=== PATIENT | female | born 1990 | race Hispanic/Latino ===

== ENCOUNTER 2022-10-14 19:27 | Emergency (ER) | payer SELFPAY ==
--- OUTSIDE RECORDS SUMMARY | 2022-10-14 19:31 | XMS REPORT | Continuity of Care Document ---
:1990 Author Organization [facility] t Address [address] [place] [address] 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 Social History Social Habit Start Date Stop Date Quantity Comments Source alcohol use, 2022-07-01 2022-07-01 holidays/special [facility] frequency 08:52:38 08:52:38 occasions only Health social history E&M 2022-07-01 2022-07-01 . Not [facility] 08:52:38 08:52:38 homeless. Born Health in [place]. Employed full-time. Network Engineer. Highest education level: some college. Sex at : Male. Sexual orientation: Mejia. Gender identity: Female. Gender of partner(s): Men. Age of first sexual intercourse: 22. Sexually Active: No. social history 2022-07-01 2022-07-01 reviewed today [facility] reviewed E&M 08:52:38 08:52:38 Health is there any chance 2022-07-01 2022-07-01 No [facility] that you could be 08:52:38 08:52:38 Health ? Patient was counseled 2022-07-01 2022-07-01 Counseled for [facility] for sexual safety 08:52:38 08:52:38 sexual health Heal th safety. alcohol use 2022-07-01 2022-07-01 Currently [facility] 08:52:38 08:52:38 Health passive cigarette 2022-07-01 2022-07-01 Yes [facility] smoke exposure 08:52:38 08:52:38 Health if the patient is 2022-07-01 2022-07-01 No [facility] using/has used a 08:52:38 08:52:38 Health vaping item, Current, Former, Never Used, Not asked PHQ2 Questionairre 2022-07-01 2022-07-01 [facility] Score 08:52:38 08:52:38 Health drug use 2022-07-01 2022-07-01 Never [facility] ty 08:52:38 08:52:38 Health tobacco use 2022-04-01 2022-04-01 Currently [facility] (cigarettes, cigar, 11:19:15 11:19:15 Healt h chew, pipe) sexual orientation 2022-04-01 2022-04-01 Mejia [facility] 11:19:15 11:19:15 Health albumin, serum 2022-03-10 2022-03-10 4.9 g/dL [facility] 16:51:00 16:51:00 Health patient considered to 2022-03-10 2022-03-10 No [facility] be homeless 09:47:58 09:47:58 Health sex at 2022-03-10 2022-03-10 F Marek hollins 09:47:58 09:47:58 Health 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 Clinician (SIG) Name Name (SPIRONOLAC 2021-11 Yes Nunu TAKE ONE [facility] TONE) 100 0-14 Daniel MSN, TABLET BY Adult MG TABS 00:00: PET CARE ASSOCIATE MOUTH TWO Medic in 00 TIMES A e DAY (ESTRADIOL Yes Nunu .5 Inject 0.5 [facility] VALERATE) 5-18 Daniel MSN, ml Adul t 40 MG/ML 00:00: PET CARE ASSOCIATE intramuscu Med icin OIL 00 larly e every two weeks (ESTRADIOL) 2021- No Nunu 2 Take 2 L MC 2 MG TABS 03-13 07-11 Daniel tablet by Nolan lt 00:00: 00:00 mouth Medicin 00 :00 twice a e day 1 mL leur Yes Nunu 1 Use 1 [facility] lock 4-27 Sanchez MSN, syringe Adult syringes 00:00: PET CARE ASSOCIATE intramuscu Med icin 00 larly e every two weeks Use to draw up and inject estradiol every 2 weeks 22 gauge Yes Nunu 1 Use 1 [facility] needles 4-27 Sanchez MSN, needle as A dult 00:00: PET CARE ASSOCIATE directed Medicin 00 every two e weeks use to draw up estradiol into syringe 22 gauge x Yes Nunu 1 Use 1 [facility] 3/4 inch 4-27 Daniel MSN, needle Nolan lt needles 00:00: PET CARE ASSOCIATE intramuscu Medi danial 00 larly once e every two weeks use to inject estradiol into tissues VITAMIN D Yes Nunu 1 Take 1 [facility] (ERGOCALCIF 4-27 Daniel MSN, capsule by Adult GABRIELA) 00:00: PET CARE ASSOCIATE mouth once Medici n (ERGOCALCIF 00 a week e GABRIELA) 1.25 MG (02825 UT) CAPS (ESTRADIOL Nunu 1 Inject 1 [facility] VALERATE) 03-11 0518 Daniel ml Adult 20 MG/ML 00:00: 00:00 intramuscu Me dicin OIL 00 :00 larly e every two weeks (SPIRONOLAC Nunu 1 Take 1 L [facility] TONE) 100 03-1014 Daniel tablet by Nolan lt MG TABS 00:00: 00:00 mouth Medicin 00 :00 twice a e day Vital Signs Vital Name Observation Time Observation Value Comments Source temperature site 2022-03-10 09:47:58 oral Lega [facility] oxygen saturation, 2022-03-10 09:47:58 97 /min [facility] oximetry [facility] blood pressure, 2022-03-10 09:47:58 77 mm[Hg] [facility] diastolic [facility] blood pressure, 2022-03-10 09:47:58 127 mm[Hg] [facility] systolic [facility] pulse rate 2022-03-10 09:47:58 70 /min [facility] temperature E&M 2022-03-10 09:47:58 99.2 [degF] [facility] weight E&M 2022-03-10 09:47:58 189.50 [lb_av] [facility] weight in kilograms 2022-03-10 09:47:58 86.14 kg L [facility] 2022-03-10 09:47:58 oral Lega cy [facility] Procedures Procedure Date / Time Performing Clinician Source Performed Health 2022-03-13 11:50:44 Provider, Jae Gard[place] [facility] Health Counseling Gender Care Navigation 2022-03-10 16:19:13 Nunu Sanchez [facility] Venipuncture 2022-03-10 16:18:49 Nunu Sanchezu nit Health Encounters Start End Encounter Admission Attending Care Care Encounter Source Date/Time Date/Time Type Type Clinicians Facility Department ID 2022-07-01 2022-07-02 Office Nunu Sanchez [facility] Enco unter/ [facility] 00:00:00 00:00:00 Visit Ingrid Mojgan [id number] Commun [id number] [facility] 2022-07-01 2022-07-02 In-person Bryan Sanchezon [facility] Adult [id number] [facility] 00:00:00 00:00:00 encounter Mojgan Quintero [facility] [place] [id number] [facility] 2022-04-01 2022-04-02 Office DanielBryanon [facility] Enco unter/ [facility] 00:00:00 00:00:00 [place] [id number] [facility] [id number] [facility] 2022-04-01 2022-04-02 In-person DanielBryanon [facility] Adult [id number] [facility] 00:00:00 00:00:00 encounter [facility] 2 [address]18 [facility] 2022-03-10 2022-03-11 In-person SanchezBryanon [facility] Adult [id number] [facility] 00:00:00 00:00:00 encounter Nancy, [facility] [address] [facility] [facility] Results Test Description Test Time Test Comments Results Result Comments Source estradiol, serum 2022-03-10 16:51:00 Test Item Value Reference Range Interpretation Comme nts estradiol, serum (test code = 286) 11.0 pg/mL [facility] 25-hydroxy, [id number] 16:51:00 Test Item Value Reference Range Interpretation Comments vitamin D 25-hydroxy, serum (test 15.5 ng/mL 30.0-100.0 L code = 02924-2) [facility], [id number] 16:51:00 Test Item Value Reference Range Interpretation Comments estradiol, serum (test code = 286) 11.0 pg/mL [facility], [id number] 16:51:00 Test Item Value Reference Range Interpretation Comments prolactin, serum (test code = 13.2 ng/mL 4.8-23.3 2842-3) [facility], [id number] 16:51:00 Test Item Value Reference Range Interpretation Comments testosterone, total (test code = 284 ng/dL 13-71 H 2986-8) [facility] A1C, blood, as % of total [id number] 16:51:00 Test Item Value Reference Range Interpretation Comments hemoglobin A1C, blood, as % of total 5.1 % 4.8-5.6 hemoglobin (test code = 4548-4) [facility] cholesterol, [id number] 16:51:00 Test Item Value Reference Range Interpretation Comments LDL cholesterol, serum (test code = 74 mg/dL 0-99 2088-1) [facility] low density [id number] 16:51:00 Test Item Value Reference Range Interpretation Comments very low density lipoproteins (test 63 mg/dL 5-40 H code = 2090-7) [facility], [id number] 16:51:00 Test Item Value Reference Range Interpretation Comments HDL cholesterol, serum (test code = 33 mg/dL >39 L 9) [facility], serum, [id number] 16:51:00 Test Item Value Reference Range Interpretation Comments triglyceride, serum, fasting (test 400 mg/dL 0-149 H code = 2571-8) [facility]olesterol, [id number] 16:51:00 Test Item Value Reference Range Interpretation Comments cholesterol, serum (test code = 170 mg/dL 978-692 4460-3) [facility] aminotransferase (SGPT), [id number] 16:51:00 Test Item Value Reference Range Interpretation Comments alanine aminotransferase (SGPT), serum 44 1/L 0-32 H (test code = 1742-6) [facility]aspartate aminotransferase (SGOT), [id number] 16:51:00 Test Item Value Reference Range Interpretation Comments aspartate aminotransferase (SGOT), 26 1/L 0-40 serum (test code = 1920-8) [facility] Hospitalalkaline phosphatase, [id number] 16:51:00 Test Item Value Reference Range Interpretation Comments alkaline phosphatase, serum (test code 94 1/L 44-121 = 1783-0) [facility], serum, [id number] 16:51:00 Test Item Value Reference Range Interpretation Comments bilirubin, serum, total (test code 0.3 mg/dL 0.0-1.2 = 1975-2) [facility] Healthalbumin/globulin ratio, [id number] 16:51:00 Test Item Value Reference Range Interpretation Comments albumin/globulin ratio, 1.9 (unknown unit) 1.2-2.2 serum (test code = 1759-0) [facility] Healthglobulin, [id number] 16:51:00 Test Item Value Reference Range Interpretation Comments globulin, serum (test code 2.6 (unknown unit) 1.5-4.5 = 2336-6) [facility] Healthalbumin, [id number] 16:51:00 Test Item Value Reference Range Interpretation Comments albumin, serum (test code = 1751-7) 4.9 g/dL 3.9-5.0 [facility], total, [id number] 16:51:00 Test Item Value Reference Range Interpretation Comments protein, total, serum (test code = 7.5 g/dL 6.0-8.5 2885-2) [facility] Healthcalcium, [id number] 16:51:00 Test Item Value Reference Range Interpretation Comments calcium, serum (test code = 1999-8) 9.3 mg/dL 8.7-10.2 [facility], venous [id number] 16:51:00 Test Item Value Reference Range Interpretation Comments carbon dioxide, venous blood (test 19 mmol/L 20-29 L code = 2026-1) [facility] Healthchloride, [id number] 16:51:00 Test Item Value Reference Range Interpretation Comments chloride, serum (test code = 103 mmol/L 96-106 5-0) [facility] Healthpotassium, [id number] 16:51:00 Test Item Value Reference Range Interpretation Comments potassium, serum (test code = 4.0 mmol/L 3.5-5.2 2823-3) [facility]alsodium, [id number] 16:51:00 Test Item Value Reference Range Interpretation Comments sodium, serum (test code = 2951-2) 139 mmol/L 134-144 [facility]a nitrogen/creatinine ratio, [id number] 16:51:00 Test Item Value Reference Range Interpretation Comments urea nitrogen/creatinine 15 (unknown unit) 9- ratio, serum (test code = 3097-3) [facility] HospitalEstimated Glomerular Filtration Rate (calc)2022-03-10 16:51:00 Test Item Value Reference Range Interpretation Comments Estimated Glomerular 95 mL/min/{1.73 m2} >59 Filtration Rate (calc) (test code = 81007-1) [facility]inine, [id number] 16:51:00 Test Item Value Reference Range Interpretation Comments creatinine, serum (test code = 0.85 mg/dL 0.57-1.00 2160-0) [facility] nitrogen, [id number] 16:51:00 Test Item Value Reference Range Interpretation Comments urea nitrogen, blood (test code = 13 mg/dL 6-20 3094-0) [facility] glucose, [id number] 16:51:00 Test Item Value Reference Range Interpretation Comments blood glucose, random (test code = 86 mg/dL 65-99 2339-0) [facility] Hospitalimmature granulocytes, percentage of total cells, blood 2022-03-10 16:51:00 Test Item Value Reference Range Interpretation Comments immature granulocytes, percentage of 1 % total cells, blood (test code = 32560-9) [facility] Hospitalbasophil count, [id number] 16:51:00 Test Item Value Reference Range Interpretation Comments basophil count, absolute (test 0.1 x10E3/uL 0.0-0.2 code = 68921-6) [facility] HospitalEosinophil Absolute [id number] 16:51:00 Test Item Value Reference Range Interpretation Comments Eosinophil Absolute Count (test 0.2 X10E3/UL 0.0-0.4 code = 50834-5) [facility] Hospitalmonocyte count, blood, [id number] 16:51:00 Test Item Value Reference Range Interpretation Comments monocyte count, blood, automated 0.6 X10E3/UL 0.1-0.9 (test code = 742-7) [facility]allymph[facility] count, blood, [id number] 16:51:00 Test Item Value Reference Range Interpretation Comments lymphocyte count, blood, 2.5 X10E3/UL 0.7-3.1 automated (test code = 731-0) [facility] HospitalAbsolute [id number] 16:51:00 Test Item Value Reference Range Interpretation Comments Absolute Neutrophils (test code 4.7 X10E3/UL 1.4-7.0 = 10930-3) [facility]ophils as percent of blood [id number] 16:51:00 Test Item Value Reference Range Interpretation Comments basophils as percent of blood 1 % leukocytes (test code = 707-0) [facility]aleosinophils as percent of blood [id number] 16:51:00 Test Item Value Reference Range Interpretation Comments eosinophils as percent of blood 2 % leukocytes (test code = 713-8) [facility] Healthmonocytes as percent of blood [id number] 16:51:00 Test Item Value Reference Range Interpretation Comments monocytes as percent of blood 7 % leukocytes (test code = 5905-5) [facility]mphocytes as percent of blood [id number] 16:51:00 Test Item Value Reference Range Interpretation Comments lymphocytes as percent of blood 31 % leukocytes (test code = 736-9) [facility] Hospitalneutrophils as percent of blood [id number] 16:51:00 Test Item Value Reference Range Interpretation Comments neutrophils as percent of blood 58 % leukocytes (test code = 770-8) [facility] Hospitalplatelet [id number] 16:51:00 Test Item Value Reference Range Interpretation Comments platelet count (test code = 313 X10E3/UL 150-450 777-3) [facility] Hospitalred blood cell distribution [id number] 16:51:00 Test Item Value Reference Range Interpretation Comments red blood cell distribution width 12.7 % 11.7-15.4 (test code = 788-0) [facility] corpuscular hemoglobin concentration, [id number] 16:51:00 Test Item Value Reference Range Interpretation Comments mean corpuscular hemoglobin 33.9 G/DL 31.5-35.7 concentration, RBC (test code = 786-4) [facility] corpuscular hemoglobin, [id number] 16:51:00 Test Item Value Reference Range Interpretation Comments mean corpuscular hemoglobin, RBC 29.9 pg 26.6-33.0 (test code = 785-6) [facility] Hospitalmean corpuscular volume, [id number] 16:51:00 Test Item Value Reference Range Interpretation Comments mean corpuscular volume, RBC (test code 88 fL 79-97 = 787-2) [facility] Hospitalhematocrit, [id number] 16:51:00 Test Item Value Reference Range Interpretation Comments hematocrit, blood (test code = 4544-3) 41.6 % 34.0-46.6 [facility] Hospitalhemoglobin, [id number] 16:51:00 Test Item Value Reference Range Interpretation Comments hemoglobin, blood (test code = 14.1 g/dL 11.1-15.9 718-7) [facility] Hospitalerythrocyte (RBC) [id number] 16:51:00 Test Item Value Reference Range Interpretation Comments erythrocyte (RBC) count (test 4.71 X10E6/UL 3.77-5.28 code = 789-8) [facility] Hospitalleukocyte count, [id number] 16:51:00 Test Item Value Reference Range Interpretation Comments leukocyte count, blood (test 8.1 X10E3/UL 3.4-10.8 code = 6690-2) [facility] Hospitalthyroxine, serum, [id number] 16:51:00 Test Item Value Reference Range Interpretation Comments thyroxine, serum, free (test code 1.22 ng/dL 0.82-1.77 = 3024-7) [facility] Hospitalthyroid stimulating hormone, [id number] 16:51:00 Test Item Value Reference Range Interpretation Comments thyroid stimulating hormone, 1.080 u[IU]/mL 0.450-4.500 serum (test code = 3016-3) [facility]
[2022-10-14] MEDS ORDERED: NA CHLORIDE 0.9% 1,000 ML ONE (20:26)
[2022-10-14 20:50] LABS: Urine Blood Negative (Negative); Urine Glucose Negative (Negative); Urine Protein 1+ (Negative); Urine Specific Gravity >=1.030 (1.005-1.030); Urine pH 5.5 (5.0-7.0)
--- NOTE | 2022-10-14 20:51 | RAD REPORT ---
EXAM DESCRIPTION: RAD - Chest Pa And Lat (2 Views) - 10/14/2022 8:45 pm CLINICAL HISTORY: Cough COMPARISON: No comparisons FINDINGS: Lines: None. Lungs: No evidence of edema or pneumonia. Pleural: No significant pleural effusions or pneumothorax. Cardiac: The heart size is within normal limits. Mediastinum: Within normal limits. Bones: No acute fractures. Other: None IMPRESSION: No acute cardiopulmonary disease.
[2022-10-14] MEDS ORDERED: HYDROCODONE/CHLORPHEN 5 ML/OSYR ONE (20:55)
[2022-10-14] MEDS ORDERED: AZITHROMYCIN 250 MG TAB ONE (20:56)
[2022-10-14 20:58] LABS: Absolute Lymphocytes (CBC) 2.2 K/uL (0.7-4.9); Hematocrit 38.2 % (36.0-45.0); Lymphocytes % 44.3 % (15.3-44.8); MPV 9.1 fL (7.6-11.3); RBC Red Blood Cell Count 4.29 M/uL (3.86-4.86)
[2022-10-14] MEDS ORDERED: CEFTRIAXONE 1000 MG/VIAL ONE (21:01)
[2022-10-14 21:08] LABS: Urine Specific Gravity/Preg >1.030 (1.005-1.030)
[2022-10-14 21:13] LABS: Albumin 3.7 g/dL (3.4-5.0); Bilirubin Total 0.4 mg/dL (0.2-1.0); Potassium 3.4 mmol/L (3.5-5.1); Protein, Total 7.9 g/dL (6.4-8.2)
[2022-10-14 21:33] LABS: SARS-COV-2 RT PCR NEGATIVE (NEGATIVE)
--- NOTE | 2022-10-14 21:42 | ER ---
Nurse's Notes [facility] Name: Betina Ch Age: 32 yrs Sex: Female : 1990 Arrival Date: 10/14/2022 Time: 19:32 Bed 19 Private MD: Diagnosis: Acute upper respiratory infection, unspecified;Cough;Hypokalemia;Influenza due to identified novel influenza A virus Presentation: 10/14 19:41 Chief complaint: Patient states: I HAVE FELT SICK SINCE WEDNESDAY. I HAVE HAD A FEVER kd3 OFF AND ON. YESTERDAY IT GOT UP TO 102. I'VE NEVER BEEN REALLY SICK BEFORE. I FEEL REAL BAD. I HAVE A HEAD ACHE AND A DRY COUGH THAT WONT GO AWAY. I'VE BEEN TAKING TYLENOL AND I TOOK SOME OF MY SISTER'S TAMIFLU. Coronavirus screen: Vaccine status: Patient reports receiving the 2nd dose of the covid vaccine. Ebola Screen: No symptoms or risks identified at this time. Initial Sepsis Screen: Does the patient meet any 2 criteria? No. Patient's initial sepsis screen is negative. Does the patient have a suspected source of infection? No. Patient's initial sepsis screen is negative. Risk Assessment: Do you want to hurt yourself or someone else? Patient reports no desire to harm self or others. Onset of symptoms was October 14, 2022. 19:41 Method Of Arrival: Ambulatory kd3 19:41 Acuity: JOSE 4 kd3 Triage Assessment: 19:45 Headache History: Denies prior headaches. General: Appears uncomfortable, ill, Behavior kd3 is calm, cooperative. Pain: Pain currently is 6 out of 10 on a pain scale. Pain began gradually, Also complains of no other associated symptoms. Neuro: Level of Consciousness is awake, alert, obeys commands, Oriented to person, place, time, situation. Cardiovascular: Capillary refill < 3 seconds in bilateral fingers Patient's skin is warm and dry. Respiratory: Airway is patent Trachea midline Respiratory effort is even, unlabored, Respiratory pattern is regular, symmetrical. 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 - Social history:: Smoking status: unknown. Screenin:42 Abuse screen: Denies threats or abuse. Nutritional screening: No deficits noted. jj7 Tuberculosis screening: No symptoms or risk factors identified. Fall Risk None identified. Assessment: 19:42 General: Appears in no apparent distress. uncomfortable, Behavior is calm, cooperative, jj7 appropriate for age. Pain: Denies pain. Neuro: No deficits noted. Respiratory: Reports cough that is dry, persistent. Vital Signs: 19:41 BP 130 / 96; Pulse 102; Resp 19; Temp 99.8(O); Pulse Ox 100% on R/A; Weight 72.57 kg; kd3 Height 5 ft. 7 in. (170.18 cm); 20:57 BP 111 / 83; Pulse 98; Resp 17; Pulse Ox 99% ; jj7 21:53 BP 126 / 89; Pulse 100; Resp 19; Pulse Ox 100% ; Pain 0/10; jj7 19:41 Body Mass Index 25.06 (72.57 kg, 170.18 cm) kd3 James Coma Score: 19:58 Eye Response: spontaneous(4). Verbal Response: oriented(5). Motor Response: obeys sue commands(6). Total: 15. ED Course: 19:32 Patient arrived in ED. dt4 19:34 Lance Perla MD is Attending Physician. sue 19:42 Deidra Burleson, MARIO ALBERTO is Primary Nurse. jj7 19:42 Patient has correct armband on for positive identification. Bed in low position. Call j7 light in reach. 19:42 No provider procedures requiring assistance completed. jj7 19:44 Triage completed. kd3 19:45 Arm band placed on right wrist. kd3 20:20 Inserted saline lock: 20 gauge in right antecubital area, using aseptic technique. jj7 Blood collected. 20:46 Chest Pa And Lat (2 Views) XRAY In Process Unspecified. EDMS 20:47 Blood Culture Adult (2) Sent. jj7 20:48 COVID-19/FLU A+B Sent. jj7 20:48 Strep Sent. jj7 20:48 Comprehensive Metabolic Panel Sent. jj7 20:48 CBC with Diff Sent. jj7 21:07 Urine --Ancillary (enter results) Sent. pf1 22:02 IV discontinued, intact, bleeding controlled, No redness/swelling at site. Pressure jj7 dressing applied. Administered Medications: 20:48 Drug: NS 0.9% 1000 ml Route: IV; Rate: 1 bolus; Site: right antecubital; jj7 21:05 Follow up: Response: No adverse reaction pf1 22:03 Follow up: IV Status: Completed infusion jj7 20:57 Drug: Zithromax (azithromycin) 500 mg Route: PO; jj7 21:06 Follow up: Response: No adverse reaction pf1 22:02 Follow up: Response: No adverse reaction jj7 20:57 Drug: Tussionex Pennkinetic ER (chlorpheniramine-hydrocodone) Suspension 5 ml Route: PO;jj7 22:02 Follow up: Response: Other jj7 21:00 Drug: Rocephin (cefTRIAXone) 1 grams Route: IV; Rate: per protocol; Site: right pf1 antecubital; 22:02 Follow up: Response: No adverse reaction jj7 21:51 Drug: Potassium Effervescent Tablet 25 mEq Route: PO; jj7 22:02 Follow up: Response: No adverse reaction jj7 22:01 Drug: Tamiflu (oseltamivir) 75 mg Route: PO; jj7 22:01 Follow up: Response: No adverse reaction jj7 Medication: 19:42 VIS not applicable for this client. jj7 Outcome: 21:41 Discharge ordered by . sue 22:03 Discharged to home ambulatory. jj7 22:03 Condition: improved 22:03 Discharge instructions given to patient, Instructed on discharge instructions, medication usage, Demonstrated understanding of instructions, medications, Prescriptions given X 3. 22:08 Patient left the ED. jj7 Addendum: 10/16/2022 02:46 Addendum: Culture Results: Positive blood culture. Aerobic gram positive cocci in t w5 pairs. Many WBC x1. Signatures: Dispatcher [employer] EDMS Lance Perla MD MD cha Wood, Tiffany tw5 B[place]y [place] RN RN kd3 Deidra Burleson RN RN jj7 Nilam Barrett dt4 Mindy zuñiga RN RN pf1
--- NOTE | 2022-10-14 21:42 | EDPHYS ---
Physician Documentation [facility] Name: Betina Ch Age: 32 yrs Sex: Female : 1990 Arrival Date: 10/14/2022 Time: 19:32 Bed 19 Private MD: ED Physician Lance Perla HPI: 10/14 19:57 This 32 yrs old Female presents to ER via Ambulatory with complaints of sue Headache, Fever, General Weakness, Cough, Congestion, Sore Throat. 19:57 The patient complains of pain to the top of head, forehead, left frontal area, left sue side of the back of head, right frontal area, right side of the back of head, right occipital area and right base of the skull. The patient describes the headache as aching. Onset: The symptoms/episode began/occurred 3 day(s) ago. Associated signs and symptoms: Pertinent positives: weakness. Severity of symptoms: At its worst the pain was mild, in the emergency department the pain is unchanged. Headache History: The patient has had previous headaches and this one is similar to previous episodes. The symptoms are alleviated by nothing. the symptoms are aggravated by nothing. [employer]: 19:45 LMP N/A - kd3 Historical: - Allergies: 19:45 No Known Allergies; kd3 - Home Meds: 19:45 None [Active]; kd3 - PMHx: 19:45 None; kd3 - Immunization history:: Adult Immunizations up to date. - Social history:: Smoking status: unknown. ROS: 19:58 Constitutional: Negative for fever, chills, and weight loss, Eyes: Negative for injury, sue pain, redness, and discharge, ENT: Negative for injury, pain, and discharge, Neck: Negative for injury, pain, and swelling, Cardiovascular: Negative for chest pain, palpitations, and edema, Abdomen/GI: Negative for abdominal pain, nausea, vomiting, diarrhea, and constipation, Back: Negative for injury and pain, : Negative for injury, bleeding, discharge, and swelling, MS/Extremity: Negative for injury and deformity, Skin: Negative for injury, rash, and discoloration, Neuro: Negative for headache, weakness, numbness, tingling, and seizure, Psych: Negative for depression, anxiety, suicide ideation, homicidal ideation, and hallucinations, Allergy/Immunology: Negative for hives, rash, and allergies, Endocrine: Negative for neck swelling, polydipsia, polyuria, polyphagia, and marked weight changes, Hematologic/Lymphatic: Negative for swollen nodes, abnormal bleeding, and unusual bruising. 19:58 Respiratory: Positive for cough, "sounds productive". Exam: 19:58 Constitutional: This is a well developed, well nourished patient who is awake, alert, sue and in no acute distress. Head/Face: Normocephalic, atraumatic. Eyes: Pupils equal round and reactive to light, extra-ocular motions intact. Lids and lashes normal. Conjunctiva and sclera are non-icteric and not injected. Cornea within normal limits. Periorbital areas with no swelling, redness, or edema. ENT: Nares patent. No nasal discharge, no septal abnormalities noted. Tympanic membranes are normal and external auditory canals are clear. Oropharynx with no redness, swelling, or masses, exudates, or evidence of obstruction, uvula midline. Mucous membranes moist. Neck: Trachea midline, no thyromegaly or masses palpated, and no cervical lymphadenopathy. Supple, full range of motion without nuchal rigidity, or vertebral point tenderness. No Meningismus. Chest/axilla: Normal chest wall appearance and motion. Nontender with no deformity. No lesions are appreciated. Cardiovascular: Regular rate and rhythm with a normal S1 and S2. No gallops, murmurs, or rubs. Normal PMI, no JVD. No pulse deficits. Abdomen/GI: Soft, non-tender, with normal bowel sounds. No distension or tympany. No guarding or rebound. No evidence of tenderness throughout. Back: No spinal tenderness. No costovertebral tenderness. Full range of motion. Pelvic Exam: Normal external genitalia. Speculum exam with closed cervical os, no discharge or bleeding noted. Bimanual exam with normal adnexa, no adnexal or cervical motion tenderness. Normal uterus. Skin: Warm, dry with normal turgor. Normal color with no rashes, no lesions, and no evidence of cellulitis. MS/ Extremity: Pulses equal, no cyanosis. Neurovascular intact. Full, normal range of motion. Neuro: Awake and alert, GCS 15, oriented to person, place, time, and situation. Cranial nerves II-XII grossly intact. Motor strength 5/5 in all extremities. Sensory grossly intact. Cerebellar exam normal. Normal gait. Psych: Awake, alert, with orientation to person, place and time. Behavior, mood, and affect are within normal limits. 19:58 Respiratory: the patient does not display signs of respiratory distress, Respirations: normal, Breath sounds: rhonchi, that are mild, are scattered. Vital Signs: 19:41 BP 130 / 96; Pulse 102; Resp 19; Temp 99.8(O); Pulse Ox 100% on R/A; Weight 72.57 kg; kd3 Height 5 ft. 7 in. (170.18 cm); 20:57 BP 111 / 83; Pulse 98; Resp 17; Pulse Ox 99% ; jj7 21:53 BP 126 / 89; Pulse 100; Resp 19; Pulse Ox 100% ; Pain 0/10; jj7 19:41 Body Mass Index 25.06 (72.57 kg, 170.18 cm) kd3 [place] Coma Score: 19:58 Eye Response: spontaneous(4). Verbal Response: oriented(5). Motor Response: obeys [facility] commands(6). Total: 15. MDM: 19:34 Patient medically screened. sue 19:58 Differential diagnosis: cluster headache. Differential Diagnosis: Bronchitis Influenza sue Pharyngitis. Data reviewed: vital signs, nurses notes, lab test result(s), CBC, electrolytes, hepatic panel, radiologic studies, plain films. Data interpreted: candy separator hard: rate is 102 beats/min, rhythm is regular. Test interpretation: by ED physician or midlevel provider: plain radiologic studies. Counseling: I had a detailed discussion with the patient and/or guardian regarding: the historical points, exam findings, and any diagnostic results supporting the discharge/admit diagnosis. 10/14 19:36 Order name: CBC with Diff; Complete Time: 21:26 [facility] 10/14 19:36 Order name: Comprehensive Metabolic Panel; Complete Time: 21:26 [facility] 10/14 19:36 Order name: Strep; Complete Time: 21:26 [facility] 10/14 19:36 Order name: COVID-19/FLU A+B; Complete Time: 21:40 sue 10/14 20:21 Order name: Blood Culture Adult (2) [facility] 10/14 20:51 Order name: Urine Dipstick-Ancillary; Complete Time: 20:52 [facility] 10/14 20:24 Order name: Chest Pa And Lat (2 Views) XRAY; Complete Time: 20:59 sue 10/14 20:56 Order name: Urine --Ancillary (enter results); Complete Time: 21:26 wm 10/14 21:10 Order name: Throat Culture [facility] 10/14 19:36 Order name: Urine Dipstick-Ancillary (obtain specimen); Complete Time: 20:50 sue 10/14 19:36 Order name: Urine Test (obtain specimen); Complete Time: 20:50 sue Administered Medications: 20:48 Drug: NS 0.9% 1000 ml Route: IV; Rate: 1 bolus; Site: right antecubital; jj7 21:05 Follow up: Response: No adverse reaction pf1 22:03 Follow up: IV Status: Completed infusion jj7 20:57 Drug: Zithromax (azithromycin) 500 mg Route: PO; jj7 21:06 Follow up: Response: No adverse reaction pf1 22:02 Follow up: Response: No adverse reaction jj7 20:57 Drug: Tussionex Pennkinetic ER (chlorpheniramine-hydrocodone) Suspension 5 ml Route: PO;jj7 22:02 Follow up: Response: Other jj7 21:00 Drug: Rocephin (cefTRIAXone) 1 grams Route: IV; Rate: per protocol; Site: right pf1 antecubital; 22:02 Follow up: Response: No adverse reaction jj7 21:51 Drug: Potassium Effervescent Tablet 25 mEq Route: PO; jj7 22:02 Follow up: Response: No adverse reaction jj7 22:01 Drug: Tamiflu (oseltamivir) 75 mg Route: PO; jj7 22:01 Follow up: Response: No adverse reaction jj7 Disposition Summary: 10/14/22 21:41 Discharge Ordered Location: Home use Problem: new sue Symptoms: have improved sue Condition: Stable sue Diagnosis - Acute upper respiratory infection, unspecified sue - Cough sue - Hypokalemia sue - Influenza due to identified novel influenza A virus sue Followup: sue - With: Private Physician - When: 2 - 3 days - Reason: Recheck today's complaints, Continuance of care, Re-evaluation by your physician Discharge Instructions: - Discharge Summary Sheet sue - Potassium Content of Foods sue - Upper Respiratory Infection, Adult sue - Cool Mist Vaporizer sue - Upper Respiratory Infection, Adult, [id number] sue - Influenza, Adult sue - Cough, Adult, [id number] sue - Viral Respiratory Infection, [id number] sue - Cough, Adult sue - Hypokalemia [facility] Forms: - Medication Reconciliation Form [facility] - Thank You Letter [facility] - Antibiotic Education [facility] - Prescription Opioid Use the [facility] Prescriptions: - Zithromax Z-Ramin 250 mg Oral Tablet - take 1 tablet by ORAL route as directed for 5 days Day 1 - take two (2) tablets [facility] one time. Day 2, 3, 4 , 5 take one (1) tablet once daily.; 6 tablet; Refills: 0, Product Selection Permitted - Guaifenesin AC 10-100 mg/5 mL Oral Liquid - take 7.5 milliliter by ORAL route every 6 hours As needed; 180 milliliter; sue Refills: 0, Product Selection Permitted - Tamiflu 75 mg Oral Capsule - take 1 tablet by ORAL route every 12 hours for 5 days; 10 tablet; Refills: 0, [facility] Product Selection Permitted Signatures: Dispatcher [employer] Lance Fong MD MD cha Doucette, Kyli, RN RN kd3 Deidra Burleson RN RN jj7 Mindy zuñiga RN RN pf1
[2022-10-14] MEDS ORDERED: POTASSIUM 25 MEQ EFFERV TAB ONE (21:47)
[2022-10-14] MEDS ORDERED: OSELTAMIVIR 75 MG CAP PO ONE (21:58)
[2022-10-14 22:23] VITALS: TEMP 99.8
[2022-10-14 22:25] VITALS: BP 126/89; O2SAT 100
== END 2022-10-14 22:08 | disposition home or self-care (01) ==
LOC: ER 19:27
DX: J10.1 Influenza due to other identified influenza virus with other respiratory manifestations (principal); E87.6 Hypokalemia; Z20.822 Contact with and (suspected) exposure to COVID-19
CPT/HCPCS: 0240U; 36415; 71046; 80053; 81003; 81025; 85025; 87040; 87070; 87081; 87205; 96361; 96374; 99284; J7030; Q0144

== ENCOUNTER 2024-10-31 16:08 | Emergency (ER) | payer SELFPAY ==
--- OUTSIDE RECORDS SUMMARY | 2024-10-31 16:13 | XMS REPORT | Continuity of Care Document ---
Author Name Unknown Address [address] [place] [address] [facility] Address [address] [place] [address] Care Team Providers Care Granular Operator Name Role Phone Chhaya Villareal DO Primary Care Physician [phone] CHHAYA VILLAREAL Attending Clinician Unavailable [email or web address] Attending Clinician Unavailable [email or web address] Attending Clinician Unavailable Timothy Vogt Attending Clinician Unavailable Nunu Sanchez Attending Clinician [phone] Mojgan Quintero Attending Clinician Ava Pippa Camacho Attending Clinician Unavailabl e Chhaya Villareal DO Unavailable Daniel MSN, SURGICAL PROCESSORNunu Unavailable Payers Payer Name Policy Type Policy Number Effective Date Expirati on Date Source TITLE X [id number] 2023 00:00:00 2024 00:00:00 TITLE X P [id number] 2023 00:00:00 Problems Condition Name Condition Details Condition Category Status Onset Date Resolution Date Last Treatment Date Treating Clinician Comments Source Intertrigo Intertrigo Disease Active 2023-11 00:00: 00 [employer] [facility] Elevated liver enzymes Condition Active 11-18 00:00: 00 2022-11-18 13:03:28 Chhaya Villareal [facility] Adult Medicin e Hypertrigl yceridemia Condition Active 11-18 00:00: 00 2022-11-18 13:03:28 Chhaya Villareal [facility] Adult [facility] e Elevated liver enzymes Elevated liver enzymes Disease Active 11-18 00:00: 00 Last Assessmen t & Plan: Formattin g of this note might be different from the original. Low fat diet [facility] Hypertrigl yceridemia Hypertrigl yceridemia Disease Active 11-18 00:00: 00 Last Assessmen t & Plan: Formattin g of this note might be different from the original. Fasting labs next time, low fat and low carb diet [facility] Vitamin D deficiency Condition Active 04-01 00:00: 00 2022-11-18 11:37:00 Nunu Sanchez [facility] Adult Medicin e Disorder, endocrine NOS Condition Active 03-10 00:00: 00 2022-03-10 16:27:52 Daniel Nunu [facility] Adult Medicin e Disorder of endocrine system Disorder of endocrine system Disease Active 03-10 00:00: 00 Last Assessmen t & Plan: Formattin g of this note might be different from the original. States happy with current med dosages, continue estradiol 0.25 ml [id number] (40 mg/ml) and flaco. F/u 4m, labs prior. [employer] [facility] Itching Itching Disease Resolve d 2023-11 00:00: 00 2024-09-04 00:00:00 2024-09-04 10:10:46 [facility] Social History Social Habit Start Date Stop Date Quantity Comments Source Gender identity 2023-06-25 14:42:38 Identifies as female gender (finding) [facility] Sexual orientation 2023-06-25 14:42:38 Heterosexual (finding) [facility] History of tobacco use Cigarette Smoker [facility] ASSERTION Possible [facility] History of Occupation [facility] Tobacco use and exposure 2024-09-04 00:00:00 2024-09-04 00:00:00 Smokeless tobacco non-user [facility] Alcoholic beverage intake 2024-09-04 00:00:00 2024-09-04 00:00:00 Current drinker of alcohol (finding) [facility] History of Social function 2024-01-04 00:00:00 2024-01-04 00:00:00 [facility] Alcohol intake 2024-01-04 00:00:00 2024-01-04 00:00:00 Current drinker of alcohol (finding) [facility] Cigarettes smoked current (pack per day) - Reported 2023-09-01 00:00:00 2023-09-01 00:00:00 [facility] Alcohol Comment 2023-09-01 00:00:00 2023-09-01 00:00:00 socially [facility] Sex 2023-06-25 14:42:38 2023-06-25 14:42:38 Female (finding) [facility] alcohol use 2023-05-27 09:44:54 2023-05-27 09:44:54 Currently [facility] sexual orientation 2023-05-27 09:44:54 2023-05-27 09:44:54 Mejia [facility] is there any chance that you could be ? 2023-05-27 09:44:54 2023-05-27 09:44:54 No [facility] PHQ2 Questionairre Score 2023-05-27 09:44:54 2023-05-27 09:44:54 [facility] social history reviewed E&M 2023-05-27 09:44:54 2023-05-27 09:44:54 reviewed today [facility] drug use 2023-05-27 09:44:54 2023-05-27 09:44:54 Never [facility] passive cigarette smoke exposure 2023-05-27 09:44:54 2023-05-27 09:44:54 LA32-8 [facility] if the patient is using/has used a vaping item, Current, Former, Never Used, Not asked 2023-05-27 09:44:54 2023-05-27 09:44:54 No [facility] albumin, serum 2023-05-22 10:09:00 2023-05-22 10:09:00 4.7 g/dL [facility] Patient was counseled for sexual safety 2022-07-01 08:52:38 2022-07-01 08:52:38 Counseled for sexual health safety. [facility] tobacco use (cigarettes, cigar, chew, pipe) 2022-04-01 11:19:15 2022-04-01 11:19:15 Currently [facility] Occupation #1 2022-03-10 09:47:58 2022-03-10 09:47:58 [employer] [facility] patient considered to be homeless 2022-03-10 09:47:58 2022-03-10 09:47:58 LA32-8 [facility] sex at 2022-03-10 09:47:58 2022-03-10 09:47:58 F [facility] Smoking Status Start Date Stop Date Source Occasional tobacco smoker 2024-09-04 00:00:00 [employer] [facility] Ex-smoker (finding) 2023-05-27 09:44:54 09:44:54 [facility] Smokes tobacco daily (finding) 2022-04-01 11:19:15 [facility] Medications Ordered Medication Name Filled Medication Name Start Date Stop Date Current Medication? Ordering Clinician Indication Dosage Frequency Signature (SIG) Comments Components Source nystatin (Mycostatin ) cream nystatin (Mycostatin ) cream 2023-11 00:00: 00 09-11 23:59 :00 No Q.5D Apply topically in the morning and at bedtime for 7 days. [facility] [employer] [facility] estradiol valerate (Delestroge n) 20 MG/ML injection estradiol valerate (Delestroge n) 20 MG/ML injection 2023-11 00:00: 00 02-28 23:59 :00 No 10mg Q14D Inject 0.5 mL (10 mg) into the shoulder, thigh, or buttocks every 14 (fourteen) days. [facility] spironolact one (Aldactone) 100 MG tablet spironolact one (Aldactone) 100 MG tablet 2023-0 8-22 00:00: 00 01-02 23:59 :00 No 100mg Q.5D Take 1 tablet (100 mg) by mouth in the morning and at bedtime. [facility] Delestrogen 40 MG/ML injection Delestrogen 40 MG/ML injection 2023-0 5-31 00:00: 00 10-26 23:59 :00 No 10mg Q14D Inject 0.25 mL (10 mg) into the shoulder, thigh, or buttocks every 14 (fourteen) days. [facility] spironolact one (Aldactone) 100 MG tablet spironolact one (Aldactone) 100 MG tablet 0 -31 00:00: 00 10-11 23:59 :00 No 100mg Q.5D Take 1 tablet (100 mg) by mouth in the morning and at bedtime. [facility] Delestrogen 40 MG/ML injection Delestrogen 40 MG/ML injection 0 2-20 00:00: 00 07-17 23:59 :00 No 10mg Q14D Inject 0.25 mL (10 mg) into the shoulder, thigh, or buttocks every 14 (fourteen) days. [facility] spironolact one (Aldactone) 100 MG tablet spironolact one (Aldactone) 100 MG tablet 2023-0 2-20 00:00: 00 07-02 23:59 :00 No 100mg Q.5D Take 1 tablet (100 mg) by mouth in the morning and at bedtime. [facility] Delestrogen 40 MG/ML injection Delestrogen 40 MG/ML injection 0 1-17 00:00: 00 01-04 00:00 :00 No 10mg Q14D Inject 0.25 mL (10 mg) into the shoulder, thigh, or buttocks every 14 (fourteen) days. [facility] spironolact one (Aldactone) 100 MG tablet spironolact one (Aldactone) 100 MG tablet 2024-0 1-17 00:00: 00 01-04 00:00 :00 No 100mg Q.5D Take 1 tablet (100 mg) by mouth in the morning and at bedtime. [employer] [facility] (ESTRADIOL VALERATE) 40 MG/ML OIL 4-25 00:00: 00 Yes Christel Ruvalcaba25 Inject 0.25 ml intramuscu larly every two weeks [facility] (SPIRONOLAC TONE) 100 MG TABS 1-04 00:00: 00 Yes Chhaya Villareal DO 1 1 tablet by mouth twice a day TAKE ONE TABLET BY MOUTH TWO TIMES A DAY [facility] (ESTRADIOL VALERATE) 40 MG/ML OIL 1-04 00:00: 00 03-09 00:00 :00 No Chhaya Villareal DO .25 Inject 0.25 ml intramuscu larly once a week [facility] Adult Medicin e (SPIRONOLAC TONE) 100 MG TABS 2021-11 0-14 00:00: 00 11-18 00:00 :00 No Nunu Sanchez MSN, SURGICAL PROCESSOR TAKE ONE TABLET BY MOUTH TWO TIMES A DAY [facility] (ESTRADIOL VALERATE) 40 MG/ML OIL 5-18 00:00: 00 11-18 00:00 :00 No Nunu Sanchez MSN, SURGICAL PROCESSOR .5 Inject 0.5 ml intramuscu larly every two weeks [facility] Adult Medicin e (ESTRADIOL) 2 MG TABS 4-29 00:00: 00 05-25 00:00 :00 No Nunu Sanchez 2 Take 2 tablet by mouth twice a day [facility] 1 mL leur lock syringes 03-11 00:00: 00 Yes Nunu Sanchez MSN, SURGICAL PROCESSOR 1 Use 1 syringe intramuscu larly every two weeks Use to draw up and inject estradiol every 2 weeks [facility] 22 gauge needles 03-11 00:00: 00 Yes Nunu Sanchez MSN, SURGICAL PROCESSOR 1 Use 1 needle as directed every two weeks use to draw up estradiol into syringe [facility] 22 gauge x 3/4 inch needles 03-11 00:00: 00 Yes Nunu Sanchez MSN, SURGICAL PROCESSOR 1 Use 1 needle intramuscu larly once every two weeks use to inject estradiol into tissues [facility] VITAMIN D (ERGOCALCIF GABRIELA) (ERGOCALCIF GABIRELA) 1.25 MG (47794 UT) CAPS 03-11 00:00: 00 Yes Nunu Sanchez MSN, SURGICAL PROCESSOR 1 Take 1 capsule by mouth once a week [facility] (ESTRADIOL VALERATE) 20 MG/ML OIL 03-11 00:00: 00 04-01 00:00 :00 No Nunu Sanchez 1 Inject 1 ml intramuscu larly every two weeks [facility] (SPIRONOLAC TONE) 100 MG TABS 03-10 00:00: 00 08-28 00:00 :00 No Nunu Sanchez 1 Take 1 tablet by mouth twice a day [facility] Vital Signs Vital Name Observation Time Observation Value Comments [facility] temperature site 2022-03-10 09:47:58 oral [facility] oxygen saturation, oximetry 2022-03-10 09:47:58 97 /min [facility] blood pressure, diastolic 2022-03-10 09:47:58 77 mm[Hg] [facility] blood pressure, systolic 2022-03-10 09:47:58 127 mm[Hg] [facility] pulse rate 2022-03-10 09:47:58 70 [facility] 2022-03-10 09:47:58 99.2 [degF] [facility] weight E&M 2022-03-10 09:47:58 189.50 [lb_av] L [facility] weight in kilograms E&M 2022-03-10 09:47:[address] [facility] temperature site 2022-03-10 09:47:58 oral [facility] Procedures Procedure Date / Time Performed Performing Clinician Source Estradiol 2024-09-04 00:00:00 [facility] [employer] [facility] TESTOSTERONE, TOTAL, ADULT MALE, [place] 2024-09-04 00:00:00 [facility] Lipid panel 2024-09-04 00:00:00 [facility] Comprehensive metabolic panel 2024-09-04 00:00:00 [facility] Estradiol 2024-04-04 00:00:00 Health [facility] TESTOSTERONE, TOTAL, ADULT MALE, [place] 2024-04-04 00:00:00 Health [facility] [employer] [facility] Lipid panel 2024-04-04 00:00:00 [facility] Comprehensive metabolic panel 2024-04-04 00:00:00 Health [facility] Most recent HbA1c is less than 7.0% 2023-05-29 11:37:18 [facility] Most recent HbA1c is less than 7.0% 2023-02-18 12:46:11 [facility] Most recent HbA1c is less than 7.0% 2022-11-18 13:02:05 [facility] Chhaya [facility] Education/Supportive Counseling 2022-03-13 11:50:44 Provider, Public Health Services [facility] Gender Care Navigation 2022-03-10 16:19:13 Bryan Sanchez [facility] Venipuncture 2022-03-10 16:18:49 Nunu Sanchez [facility] Encounters Start Date/Time End Date/Time Encounter Type Admission Type Attending [facility] Care Facility Care Department Encounter ID Source 2024-09-01 14:46:31 Outpatient CHHAYA VILLAREALN [facility] [id number] [facility] 2024-07-06 08:29:51 Outpatient CHHAYA VILLAREAL [facility] [id number] [facility] 2024-04-19 07:12:15 Outpatient CHHAYA VILLAREAL HCN [id number] [facility] 2024-04-14 07:28:12 Outpatient CHHAYA VILLAREAL HCN [id number] [facility] 2023-12-01 10:40:23 Outpatient CHHAYA VILLAREAL HCN [id number] [facility] 2023-11-22 14:14:50 Outpatient HCN HCN [id number] [facility] 2023-05-26 14:19:[address] [facility] [id number] Pending sale to [facility] 2023-03-06 11:37[facility]01 [id number] [facility] to [facility] 2023-01-22 05:03:33 [email or web address] [facility] [id number] Pending sale to [facility] 2022-11-17 15:03:[email or web address] [facility] [id number] Pending sale to [facility] 2022-10-26 23:19:[email or web address] [facility] [id number] Pending sale to [facility] 2024-09-04 10:00:00 2024-09-04 10:08:37 Telemedici ne Chhaya Villareal [facility] [id number] [facility] 2024-07-04 00:00:00 2024-07-05 14:55:43 Refill Chhaya Villareal [facility] [id number] [facility] 2024-04-04 13:42:35 2024-04-04 13:43:31 Outpatient HCN HCN [id number] [facility] 2024-04-04 12:15:00 2024-04-04 12:25:12 Telemedici Chhaya Jensen [facility] [id number] [facility] 2024-01-04 11:45:00 2024-01-04 11:52:52 Telemedici ne Chhaya Villareal [facility] [id number] [facility] 2023-10-20 12:04:14 2023-10-20 12:04:26 Outpatient HCN HCN [id number] [facility] 2023-09-01 12:38:54 2023-09-01 12:44:13 Outpatient CHHAYA VILLAREAL HCN HCN [id number] [facility] 2023-08-28 12:17:41 2023-08-29 00:59:00 Outpatient HCN HCN [id number] [facility] 2023-05-27 00:00:00 2023-05-29 00:00:00 In-person encounter Chhaya Villareal Olu Gonzalez, Nohemi Riojas [facility] Adult Medicine [id number] [facility] 2023-05-27 00:00:00 2023-05-29 00:00:00 In-person encounter Chhaya Villareal Olu Gonzalez, Nohemi Riojas [facility] Adult Medicine Encounter/ [id number] [facility] 2023-02-18 00:00:00 2023-02-18 00:00:00 In-person encounter Chhaya Villareal Yamisela Ogun[facility]ju [facility] Adult Medicine [id number] [facility] 2023-02-18 00:00:00 2023-02-18 00:00:00 In-person encounter Chhaya Villareal Yamisela [facility] Adult Medicine Encounter/ [id number] [facility] 2022-11-18 00:00:00 2022-11-18 00:00:00 In-person encounter Chhaya Villareal Yamisela [place] [facility] Adult Medicine [id number] [facility] 2022-11-18 00:00:00 2022-11-18 00:00:00 In-person encounter Chhaya Villareal Yamisela [place] [facility] Adult Medicine Encounter/ [id number] [facility] 2022-07-01 00:00:00 2022-07-02 00:00:00 Office Visit Nunu Sanchez [facility] Encounter/ [id number] Pending sale to [facility] 2022-07-01 00:00:00 2022-07-02 00:00:00 In-person encounter Nunu Sanchez Bethany [facility] Adult Medicine [id number] Pending sale to [facility] 2022-04-01 00:00:00 2022-04-02 00:00:00 Office Visit Nunu Sanchez [place] [facility] Encounter/ [id number] Pending sale to [facility] 2022-04-01 00:00:00 2022-04-02 00:00:00 In-person encounter Nunu Sanchez Valencia [facility] Adult Medicine [id number] Pending sale to [facility] 2022-03-10 00:00:00 2022-03-11 00:00:00 In-person encounter Nunu Sanchez, Angela Currie [place] [facility] Adult Medicine [id number] Pending sale to [facility] Results Test Description Test Time Test Comments Results Result Co mments Source [facility] [id number] 10:09:00* Test Item Value Reference Range Interpretation Comme nts estradiol, serum (test code = 286) 31 pg/mL N [facility] amin[facility] (SGPT), [id number] 10:09:00 * Test Item Value Reference Range Interpretation Comme nts alanine aminotransferase (SG PT), serum (test code = 1742-6) 52 1/L 6-29 H [facility] Hospitalaspartate aminotransferase (SGOT), [id number] 10:09:00* Test Item Value Reference Range Interpretation Comme nts aspartate aminotransferase ( SGOT), serum (test code = 1920-8) 30 1/L 10-30 N [facility]alkaline phosphatase, [id number] 10:09:00* Test Item Value Reference Range Interpretation Comme nts alkaline phosphatase, serum (test code = 1783-0) 63 1/L 31-125 N [facility]bilirubin, serum, [id number] 10:09:00* Test Item Value Reference Range Interpretation Comme nts bilirubin, serum, total (osmin t code = 1975-2) 0.7 mg/dL 0.2-1.2 N [facility] Healthalbumin/globulin ratio, [id number] 10:09:00* Test Item Value Reference Range Interpretation Comme nts albumin/globulin ratio, seru m (test code = 1759-0) 1.7 (calc) 1.0-2.5 N [facility] Hospital[facility]ulins, serum, [id number] 10:09:00* Test Item Value Reference Range Interpretation Comme nts globulins, serum, total (osmin t code = 2336-6) 2.8 G/DL (CALC) 1.9-3.7 N [facility] Healthalbumin, [id number] 10:09:00* Test Item Value Reference Range Interpretation Comme nts albumin, serum (test code = 1751-7) 4.7 g/dL 3.6-5.1 N [facility], total, [id number] 10:09:00* Test Item Value Reference Range Interpretation Comme nts protein, total, serum (test code = 2885-2) 7.5 g/dL 6.1-8.1 N [facility]calcium, [id number] 10:09:00* Test Item Value Reference Range Interpretation Comme nts calcium, serum (test code = 2000-8) 9.5 mg/dL 8.6-10.2 N [facility] Hospitalcarbon dioxide, venous [id number] 10:09:00* Test Item Value Reference Range Interpretation Comme nts carbon dioxide, venous blood (test code = 2027-1) 25 mmol/L 20-32 N [facility] Hospitalchloride, [id number] 10:09:00* Test Item Value Reference Range Interpretation Comme nts chloride, serum (test code = 2075-0) 104 mmol/L 98-110 N [facility] Hospitalpotassium, [id number] 10:09:00* Test Item Value Reference Range Interpretation Comme nts potassium, serum (test code = 2823-3) 4.1 mmol/L 3.5-5.3 N [facility] Hospitalsodium, [id number] 10:09:00* Test Item Value Reference Range Interpretation Comme nts sodium, serum (test code = 2951-2) 137 mmol/L 135-146 N [facility] Hospitalurea nitrogen/creatinine ratio, [id number] 10:09:00 * Test Item Value Reference Range Interpretation Comme nts urea nitrogen/creatinine ratio, serum (test code = 3097-3) NOT APPLICABLE (calc) 6-22 [facility] HospitalEstimated Glomerular Filtration Rate (calc)2023-05-22 10:09:00* Test Item Value Reference Range Interpretation Comme nts Estimated Glomerular Filtration Rate (calc) (test code = 60033-8) 123 mL/min/{1.73 m2} See_Comment N [Automated message] The system which generated this result transmitted reference range: > OR = 60. The reference range was not used to interpret this result as normal/abnormal. [facility] Hospitalcreatinine, [id number] 10:09:00* Test Item Value Reference Range Interpretation Comme nts creatinine, serum (test code = 2160-0) 0.62 mg/dL 0.50-0.97 N [facility] Hospitalurea nitrogen, [id number] 10:09:00* Test Item Value Reference Range Interpretation Comme nts urea nitrogen, blood (test c ode = 3094-0) 13 mg/dL 7-25 N [facility]blood glucose, [id number] 10:09:00* Test Item Value Reference Range Interpretation Comme nts blood glucose, random (test code = 2339-0) 92 mg/dL 65-139 N [facility] Hospitalcholesterol, non-HDL, [id number] 10:09:00* Test Item Value Reference Range Interpretation Comme nts cholesterol, non-HDL, total (test code = 94488) 125 MG/DL (CALC) <130 N [facility] Hospitalcholesterol/HDL ratio, serum, [id number] 10:09:00 * Test Item Value Reference Range Interpretation Comme nts cholesterol/HDL ratio, serum , percent (test code = 2404) 4.0 (calc) <5.0 N [facility] HospitalLDL cholesterol, [id number] 10:09:00* Test Item Value Reference Range Interpretation Comme nts LDL cholesterol, serum (test code = 2089-1) 95 MG/DL (CALC) N [facility] Hospitaltriglyceride, serum, [id number] 10:09:00* Test Item Value Reference Range Interpretation Comme nts triglyceride, serum, fasting (test code = 2571-8) 206 mg/dL <150 H [facility] HospitalHDL cholesterol, [id number] 10:09:00* Test Item Value Reference Range Interpretation Comme nts HDL cholesterol, serum (test code = 2085-9) 41 mg/dL See_Comment L [Automated messa ge] The system which generated this result transmitted reference range: > OR = 50. The reference range was not used to interpret this result as normal/abnormal. [facility] Hospitalcholesterol, [id number] 10:09:00* Test Item Value Reference Range Interpretation Comme nts cholesterol, serum (test cod e = 2093-3) 166 mg/dL <200 N [facility] Hospitalestradiol, [id number] 11:38:00* Test Item Value Reference Range Interpretation Comme [facility] estradiol, serum (test code = 286) 860 pg/mL H [facility] Hospitaltestosterone, [id number] 11:10:00* Test Item Value Reference Range Interpretation Comme [facility] testosterone, total (test co de = 2986-8) 17 ng/dL 2-45 [facility] Hospitalestradiol, [id number] 11:10:00* Test Item Value Reference Range Interpretation Comme [facility] estradiol, serum (test code = 286) 1218 pg/mL H [facility] Hospitalalanine aminotransferase (SGPT), [id number] 11:10:00 * Test Item Value Reference Range Interpretation Comme nts alanine aminotransferase (SG PT), serum (test code = 1742-6) 41 1/L 6-29 H [facility] Hospitalaspartate aminotransferase (SGOT), [id number] 11:10:00* Test Item Value Reference Range Interpretation Comme nts aspartate aminotransferase ( SGOT), serum (test code = 1920-8) 26 1/L 10-30 N [facility] Hospitalalkaline phosphatase, [id number] 11:10:00* Test Item Value Reference Range Interpretation Comme nts alkaline phosphatase, serum (test code = 1783-0) 64 1/L 31-125 N [facility] Healthbilirubin, serum, [id number] 11:10:00* Test Item Value Reference Range Interpretation Comme nts bilirubin, serum, total (osmin t code = 1975-2) 0.7 mg/dL 0.2-1.2 N [facility] Healthalbumin/globulin ratio, [id number] 11:10:00* Test Item Value Reference Range Interpretation Comme nts albumin/globulin ratio, seru m (test code = 1759-0) 1.3 (calc) 1.0-2.5 N [facility], serum, [id number] 11:10:00* Test Item Value Reference Range Interpretation Comme nts globulins, serum, total (osmin t code = 2336-6) 3.2 G/DL (CALC) 1.9-3.7 N [facility] Healthalbumin, [id number] 11:10:00* Test Item Value Reference Range Interpretation Comme nts albumin, serum (test code = 1751-7) 4.2 g/dL 3.6-5.1 N [facility] Hospitalprotein, total, [id number] 11:10:00* Test Item Value Reference Range Interpretation Comme nts protein, total, serum (test code = 2885-2) 7.4 g/dL 6.1-8.1 N [facility] Hospitalcalcium, [id number] 11:10:00* Test Item Value Reference Range Interpretation Comme nts calcium, serum (test code = 2000-8) 9.3 mg/dL 8.6-10.2 N [facility] Hospitalcarbon dioxide, venous [id number] 11:10:00* Test Item Value Reference Range Interpretation Comme nts carbon dioxide, venous blood (test code = 2027-1) 26 mmol/L 20-32 N [facility] Hospitalchloride, [id number] 11:10:00* Test Item Value Reference Range Interpretation Comme nts chloride, serum (test code = 2075-0) 104 mmol/L 98-110 N [facility] Hospitalpotassium, [id number] 11:10:00* Test Item Value Reference Range Interpretation Comme nts potassium, serum (test code = 2823-3) 4.2 mmol/L 3.5-5.3 N [facility] Hospitalsodium, [id number] 11:10:00* Test Item Value Reference Range Interpretation Comme nts sodium, serum (test code = 2951-2) 136 mmol/L 135-146 N [facility] Hospitalurea nitrogen/creatinine ratio, [id number] 11:10:00 * Test Item Value Reference Range Interpretation Comme nts urea nitrogen/creatinine ratio, serum (test code = 3097-3) NOT APPLICABLE (calc) 6-22 [facility] HospitalEstimated Glomerular Filtration Rate (calc)2023-02-23 11:10:00* Test Item Value Reference Range Interpretation Comme nts Estimated Glomerular Filtration Rate (calc) (test code = 02726-6) 121 mL/min/{1.73 m2} See_Comment N [Automated message] The system which generated this result transmitted reference range: > OR = 60. The reference range was not used to interpret this result as normal/abnormal. [facility] Hospitalcreatinine, [id number] 11:10:00* Test Item Value Reference Range Interpretation Comme nts creatinine, serum (test code = 2160-0) 0.67 mg/dL 0.50-0.97 N [facility] Hospitalurea nitrogen, [id number] 11:10:00* Test Item Value Reference Range Interpretation Comme nts urea nitrogen, blood (test c ode = 3094-0) 12 mg/dL 7-25 N [facility] Hospitalblood glucose, [id number] 11:10:00* Test Item Value Reference Range Interpretation Comme [facility] blood glucose, random (test code = 2339-0) 85 mg/dL 65-99 N [facility] Hospitalcholesterol, non-HDL, [id number] 11:10:00* Test Item Value Reference Range Interpretation Comme nts cholesterol, non-HDL, total (test code = 45940) 126 MG/DL (CALC) <130 N [facility] Hospitalcholesterol/HDL ratio, serum, [id number] 11:10:00 * Test Item Value Reference Range Interpretation Comme nts cholesterol/HDL ratio, serum , percent (test code = 2404) 4.0 (calc) <5.0 N [facility] HospitalLDL cholesterol, [id number] 11:10:00* Test Item Value Reference Range Interpretation Comme [facility] LDL cholesterol, serum (test code = 2089-1) 89 MG/DL (CALC) N [facility] Hospitaltriglyceride, serum, [id number] 11:10:00* Test Item Value Reference Range Interpretation Comme nts triglyceride, serum, fasting (test code = 2571-8) 306 mg/dL <150 H [facility] HospitalHDL cholesterol, [id number] 11:10:00* Test Item Value Reference Range Interpretation Comme nts HDL cholesterol, serum (test code = 2085-9) 42 mg/dL See_Comment L [Automated YOHOa ge] The system which generated this result transmitted reference range: > OR = 50. The reference range was not used to interpret this result as normal/abnormal. [facility] Hospitalcholesterol, [id number] 11:10:00* Test Item Value Reference Range Interpretation Comme nts cholesterol, serum (test cod e = 2093-3) 168 mg/dL <200 N [facility] Hospitaltestosterone, [id number] 11:08:00* Test Item Value Reference Range Interpretation Comme [facility] testosterone, total (test co de = 2986-8) 12 ng/dL 2-45 [facility] Hospitalestradiol, blhmk5294-29-47 11:08:00* Test Item Value Reference Range Interpretation Comme [facility] estradiol, serum (test code = 286) 448 pg/mL H [facility] Hospitalbasophils as percent of blood povegdgavd7768-66-98 11:08:00* Test Item Value Reference Range Interpretation Comme [facility] basophils as percent of bloo d leukocytes (test code = 707-0) 0.4 % N [facility] Hospitaleosinophils as percent of blood gaoaqaocog7325-84-73 11:08:00* Test Item Value Reference Range Interpretation Comme nts eosinophils as percent of bl ood leukocytes (test code = 714-6) 1.2 % N [facility] Hospitalmonocytes as percent of blood byonwxhynb9014-10-56 11:08:00* Test Item Value Reference Range Interpretation Comme [facility] monocytes as percent of bloo d leukocytes (test code = 5905-5) 6.6 % N [facility] Hospitallymphocytes as percent of blood xdttnoxjti5404-79-02 11:08:00* Test Item Value Reference Range Interpretation Comme nts lymphocytes as percent of bl ood leukocytes (test code = 736-9) 24.2 % N [facility] Hospitalneutrophils as percent of blood azyexwmrwj7577-35-49 11:08:00* Test Item Value Reference Range Interpretation Comme nts neutrophils as percent of bl ood leukocytes (test code = 770-8) 67.6 % N [facility] Hospitalbasophil count, tcajmwwu7825-20-14 11:08:00* Test Item Value Reference Range Interpretation Comme nts basophil count, absolute (te st code = 77359-1) 33 cells/uL 0-200 N [facility] HospitalAbsolute Eosinophil zepgt0408-94-95 11:08:00* Test Item Value Reference Range Interpretation Comme nts Absolute Eosinophil count (t est code = 91939-5) 100 cells/mcL 15-500 N [facility] HospitalAbsolute Monocyte [id number] 11:08:00* Test Item Value Reference Range Interpretation Comme nts Absolute Monocyte count (osmin t code = 13450-5) 548 cells/mcL 200-950 N [facility] Hospitallymphocytes, rjpjgegu6567-20-63 11:08:00* Test Item Value Reference Range Interpretation Comme nts lymphocytes, absolute (test code = 53434-1) 2009 CELLS/UL 850-3900 N [facility] HospitalAbsolute Neutrophil mugfd2727-53-48 11:08:00* Test Item Value Reference Range Interpretation Comme nts Absolute Neutrophil count (test code = 63496-6) 5611 cells/mcL 3090-5107 N [facility] Hospitalmean platelet cjunqi1457-10-41 11:08:00* Test Item Value Reference Range Interpretation Comme nts mean platelet volume (test c ode = 776-5) 11.2 fL 7.5-12.5 N [facility] Hospitalplatelet nmxsf1092-43-18 11:08:00* Test Item Value Reference Range Interpretation Comme nts platelet count (test code = 777-3) 413 THOUSAND/UL 140-400 H [facility] Hospitalred blood cell distribution wzeka2897-49-18 11:08:00* Test Item Value Reference Range Interpretation Comme [facility] red blood cell distribution width (test code = 788-0) 12.0 % 11.0-15.0 N [facility] corpuscular hemoglobin concentration, [id number] 11:08:00* Test Item Value Reference Range Interpretation Comme [facility] mean corpuscular hemoglobin concentration, RBC (test code = 786-4) 34.8 G/DL 32.0-36.0 N [facility] corpuscular hemoglobin, [id number] 11:08:00* Test Item Value Reference Range Interpretation Comme [facility] mean corpuscular hemoglobin, RBC (test code = 785-6) 31.4 pg 27.0-33.0 N [facility] corpuscular volume, [id number] 11:08:00* Test Item Value Reference Range Interpretation Comme [facility] mean corpuscular volume, RBC (test code = 787-2) 90.4 fL 80.0-100.0 N [facility] Hospitalhematocrit, atieh0827-26-31 11:08:00* Test Item Value Reference Range Interpretation Comme [facility] hematocrit, blood (test code = 4544-3) 39.4 % 35.0-45. 0 N [facility] Hospitalhemoglobin, [id number] 11:08:00* Test Item Value Reference Range Interpretation Comme [facility] hemoglobin, blood (test code = 718-7) 13.7 g/dL 11.7-15.5 N [facility] Hospitalerythrocyte (RBC) xmdkv5850-07-62 11:08:00* Test Item Value Reference Range Interpretation Comme [facility] erythrocyte (RBC) count (osmin t code = 789-8) 4.36 MILLION/UL 3.80-5.10 N [facility] Hospitalleukocyte count, [id number] 11:08:00* Test Item Value Reference Range Interpretation Comme [facility] leukocyte count, blood (test code = 6690-2) 8.3 THOUSAND/UL 3.8-10.8 N [facility] Hospitalalanine aminotransferase (SGPT), pnxwm5571-72-48 11:08:00 * Test Item Value Reference Range Interpretation Comme [facility] alanine aminotransferase (SG PT), serum (test code = 1742-6) 37 1/L 6-29 H [facility] Hospitalaspartate aminotransferase (SGOT), xvdie1145-84-27 11:08:00* Test Item Value Reference Range Interpretation Comme nts aspartate aminotransferase ( SGOT), serum (test code = 1920-8) 26 1/L 10-30 N [facility] Hospitalalkaline phosphatase, [id number] 11:08:00* Test Item Value Reference Range Interpretation Comme nts alkaline phosphatase, serum (test code = 1783-0) 84 1/L 31-125 N [facility] Hospitalbilirubin, serum, zeinq5624-56-55 11:08:00* Test Item Value Reference Range Interpretation Comme nts bilirubin, serum, total (osmin t code = 1975-2) 0.6 mg/dL 0.2-1.2 N [facility] Hospitalalbumin/globulin ratio, [id number] 11:08:00* Test Item Value Reference Range Interpretation Comme [facility] albumin/globulin ratio, seru m (test code = 1759-0) 1.7 (calc) 1.0-2.5 N [facility] Hospitalglobulins, serum, [id number] 11:08:00* Test Item Value Reference Range Interpretation Comme [facility] globulins, serum, total (osmin t code = 2336-6) 2.7 G/DL (CALC) 1.9-3.7 N [facility] Healthalbumin, awero0302-87-90 11:08:00* Test Item Value Reference Range Interpretation Comme [facility] albumin, serum (test code = 1751-7) 4.5 g/dL 3.6-5.1 N [facility] Hospitalprotein, total, [id number] 11:08:00* Test Item Value Reference Range Interpretation Comme [facility] protein, total, serum (test code = 2885-2) 7.2 g/dL 6.1-8.1 N [facility] Hospitalcalcium, [id number] 11:08:00* Test Item Value Reference Range Interpretation Comme nts calcium, serum (test code = 2000-8) 9.4 mg/dL 8.6-10.2 N [facility] Hospitalcarbon dioxide, venous [id number] 11:08:00* Test Item Value Reference Range Interpretation Comme nts carbon dioxide, venous blood (test code = 2027-1) 26 mmol/L 20-32 N [facility] Healthchloride, hoomf2690-22-10 11:08:00* Test Item Value Reference Range Interpretation Comme nts chloride, serum (test code = 2075-0) 105 mmol/L 98-110 N [facility] Hospitalpotassium, grtju1013-23-79 11:08:00* Test Item Value Reference Range Interpretation Comme nts potassium, serum (test code = 2823-3) 4.2 mmol/L 3.5-5.3 N [facility] Hospitalsodium, [id number] 11:08:00* Test Item Value Reference Range Interpretation Comme nts sodium, serum (test code = 2951-2) 138 mmol/L 135-146 N [facility] Hospitalurea nitrogen/creatinine ratio, [id number] 11:08:00 * Test Item Value Reference Range Interpretation Comme nts urea nitrogen/creatinine ratio, serum (test code = 3097-3) NOT APPLICABLE (calc) 6-22 [facility] HospitalEstimated Glomerular Filtration Rate (calc)2022-10-28 11:08:00* Test Item Value Reference Range Interpretation Comme nts Estimated Glomerular Filtration Rate (calc) (test code = 68371-6) 123 mL/min/{1.73 m2} See_Comment N [Automated message] The system which generated this result transmitted reference range: > OR = 60. The reference range was not used to interpret this result as normal/abnormal. [facility] Hospitalcreatinine, [id number] 11:08:00* Test Item Value Reference Range Interpretation Comme nts creatinine, serum (test code = 2160-0) 0.61 mg/dL 0.50-0.97 N [facility] Hospitalurea nitrogen, aflyt4551-58-69 11:08:00* Test Item Value Reference Range Interpretation Comme nts urea nitrogen, blood (test c ode = 3094-0) 14 mg/dL 7-25 N [facility] Hospitalblood glucose, [id number] 11:08:00* Test Item Value Reference Range Interpretation Comme [facility] blood glucose, random (test code = 2339-0) 105 mg/dL 65-139 N [facility]cholesterol, non-HDL, [id number] 11:08:00* Test Item Value Reference Range Interpretation Comme nts cholesterol, non-HDL, total (test code = 42149) 131 MG/DL (CALC) <130 H [facility] Hospitalcholesterol/HDL ratio, serum, [id number] 11:08:00 * Test Item Value Reference Range Interpretation Comme nts cholesterol/HDL ratio, serum , percent (test code = 2404) 4.2 (calc) <5.0 N [facility] HospitalLDL cholesterol, [id number] 11:08:00* Test Item Value Reference Range Interpretation Comme nts LDL cholesterol, serum (test code = 2089-1) LDL cholesterol not calculated. Triglyceride le... mg/dL (calc) [facility] Hospitaltriglyceride, serum, yyyjzmc5649-86-36 11:08:00* Test Item Value Reference Range Interpretation Comme [facility] triglyceride, serum, fasting (test code = 2571-8) 463 mg/dL <150 H [facility] HospitalHDL cholesterol, hadmv2097-57-19 11:08:00* Test Item Value Reference Range Interpretation Comme [facility] HDL cholesterol, serum (test code = 2085-9) 41 mg/dL See_Comment L [Automated YOHOa ge] The system which generated this result transmitted reference range: > OR = 50. The reference range was not used to interpret this result as normal/abnormal. [facility] Healthcholesterol, [id number] 11:08:00* Test Item Value Reference Range Interpretation Comme nts cholesterol, serum (test cod e = 2093-3) 172 mg/dL <200 N [facility] Healthestradiol, [id number] 16:51:00* Test Item Value Reference Range Interpretation Comme nts estradiol, serum (test code = 286) 11.0 pg/mL [facility] Hospitalvitamin D 25-hydroxy, [id number] 16:51:00* Test Item Value Reference Range Interpretation Comme [facility] vitamin D 25-hydroxy, serum (test code = 54472-5) 15.5 ng/mL 30.0-100.0 L [facility] Healthestradiol, [id number] 16:51:00* Test Item Value Reference Range Interpretation Comme [facility] estradiol, serum (test code = 286) 11.0 pg/mL [facility] Hospitalprolactin, [id number] 16:51:00* Test Item Value Reference Range Interpretation Comme [facility] prolactin, serum (test code = 2842-3) 13.2 ng/mL 4.8-23.3 [facility] Hospitaltestosterone, [id number] 16:51:00* Test Item Value Reference Range Interpretation Comme [facility] testosterone, total (test co de = 2986-8) 284 ng/dL 13-71 H [facility] Hospitalhemoglobin A1C, blood, as % of total llblfolagx2859-28-54 16:51:00* Test Item Value Reference Range Interpretation Comme [facility] hemoglobin A1C, blood, as % of total hemoglobin (test code = 4548-4) 5.1 % 4.8-5.6 [facility] HospitalLDL cholesterol, [id number] 16:51:00* Test Item Value Reference Range Interpretation Comme [facility] LDL cholesterol, serum (test code = 2089-1) 74 mg/dL 0-99 [facility] low density hcihysrnexsd8665-53-82 16:51:00* Test Item Value Reference Range Interpretation Comme [facility] very low density lipoprotein s (test code = 2091-7) 63 mg/dL 5-40 H [facility] HospitalHDL cholesterol, [id number] 16:51:00* Test Item Value Reference Range Interpretation Comme [facility] HDL cholesterol, serum (test code = 2085-9) 33 mg/dL >39 L [facility] Hospitaltriglyceride, serum, [id number] 16:51:00* Test Item Value Reference Range Interpretation Comme [facility] triglyceride, serum, fasting (test code = 2571-8) 400 mg/dL 0-149 H [facility] Hospitalcholesterol, [id number] 16:51:00* Test Item Value Reference Range Interpretation Comme nts cholesterol, serum (test cod e = 2093-3) 170 mg/dL 100-199 [facility] Hospitalalanine aminotransferase (SGPT), ntrii3934-56-57 16:51:00 * Test Item Value Reference Range Interpretation Comme nts alanine aminotransferase (SG PT), serum (test code = 1742-6) 44 1/L 0-32 H [facility] Hospitalaspartate aminotransferase (SGOT), qknca2838-56-00 16:51:00* Test Item Value Reference Range Interpretation Comme nts aspartate aminotransferase ( SGOT), serum (test code = 1920-8) 26 1/L 0-40 [facility] Hospitalalkaline phosphatase, koguo9712-07-51 16:51:00* Test Item Value Reference Range Interpretation Comme nts alkaline phosphatase, serum (test code = 1783-0) 94 1/L 44-121 [facility] Healthbilirubin, serum, [id number] 16:51:00* Test Item Value Reference Range Interpretation Comme nts bilirubin, serum, total (osmin t code = 1975-2) 0.3 mg/dL 0.0-1.2 [facility] Healthalbumin/globulin ratio, [id number] 16:51:00* Test Item Value Reference Range Interpretation Comme nts albumin/globulin ratio, serum (test code = 1759-0) 1.9 (unknown unit) 1.2-2.2 [facility] Healthglobulin, ieqws2712-59-97 16:51:00* Test Item Value Reference Range Interpretation Comme nts globulin, serum (test code = 2336-6) 2.6 (unknown unit) 1.5-4.5 [facility] Healthalbumin, [id number] 16:51:00* Test Item Value Reference Range Interpretation Comme nts albumin, serum (test code = 1751-7) 4.9 g/dL 3.9-5.0 [facility] Healthprotein, total, [id number] 16:51:00* Test Item Value Reference Range Interpretation Comme nts protein, total, serum (test code = 2885-2) 7.5 g/dL 6.0-8.5 [facility] Healthcalcium, [id number] 16:51:00* Test Item Value Reference Range Interpretation Comme nts calcium, serum (test code = 2000-8) 9.3 mg/dL 8.7-10.2 [facility] Hospitalcarbon dioxide, venous dcwhv3963-40-19 16:51:00* Test Item Value Reference Range Interpretation Comme [facility] carbon dioxide, venous blood (test code = 2027-1) 19 mmol/L 20-29 L [facility] Healthchloride, [id number] 16:51:00* Test Item Value Reference Range Interpretation Comme nts chloride, serum (test code = 2075-0) 103 mmol/L 96-106 [facility] Healthpotassium, yinry1186-23-19 16:51:00* Test Item Value Reference Range Interpretation Comme nts potassium, serum (test code = 2823-3) 4.0 mmol/L 3.5-5.2 [facility] Hospitalsodium, [id number] 16:51:00* Test Item Value Reference Range Interpretation Comme nts sodium, serum (test code = 2951-2) 139 mmol/L 134-144 [facility] Healthurea nitrogen/creatinine ratio, [id number] 16:51:00 * Test Item Value Reference Range Interpretation Comme nts urea nitrogen/creatinine ratio, serum (test code = 3097-3) 15 (unknown unit) 9-23 [facility] HospitalEstimated Glomerular Filtration Rate (calc)2022-03-10 16:51:00* Test Item Value Reference Range Interpretation Comme nts Estimated Glomerular Filtration Rate (calc) (test code = 49520-7) 95 mL/min/{1.73 m2} >59 [facility] Hospitalcreatinine, [id number] 16:51:00* Test Item Value Reference Range Interpretation Comme nts creatinine, serum (test code = 2160-0) 0.85 mg/dL 0.57-1.00 [facility] Hospitalurea nitrogen, [id number] 16:51:00* Test Item Value Reference Range Interpretation Comme nts urea nitrogen, blood (test c ode = 3094-0) 13 mg/dL 6-20 [facility] Hospitalblood glucose, [id number] 16:51:00* Test Item Value Reference Range Interpretation Comme nts blood glucose, random (test code = 2339-0) 86 mg/dL 65-99 [facility] Hospitalimmature granulocytes, percentage of total cells, blood 2022-03-10 16:51:00* Test Item Value Reference Range Interpretation Comme nts immature granulocytes, perce ntage of total cells, blood (test code = 51117-9) 1 % [facility] Hospitalbasophil count, pfetrzql1366-07-61 16:51:00* Test Item Value Reference Range Interpretation Comme nts basophil count, absolute (te st code = 05661-8) 0.1 x10E3/uL 0.0-0.2 [facility] HealthEosinophil Absolute Ayabx8416-59-39 16:51:00* Test Item Value Reference Range Interpretation Comme nts Eosinophil Absolute Count (t est code = 84626-8) 0.2 X10E3/UL 0.0-0.4 [facility] Healthmonocyte count, blood, civatwqns3784-09-69 16:51:00* Test Item Value Reference Range Interpretation Comme nts monocyte count, blood, autom ated (test code = 742-7) 0.6 X10E3/UL 0.1-0.9 [facility] Healthlymphocyte count, blood, utzkhstjj0164-97-85 16:51:00* Test Item Value Reference Range Interpretation Comme nts lymphocyte count, blood, automated (test code = 731-0) 2.5 X10E3/UL 0.7-3.1 [facility] HealthAbsolute Fahonkzwoww4517-20-19 16:51:00* Test Item Value Reference Range Interpretation Comme nts Absolute Neutrophils (test c ode = 45563-7) 4.7 X10E3/UL 1.4-7.0 [facility] Healthbasophils as percent of blood gnyjjscrlh6108-96-03 16:51:00* Test Item Value Reference Range Interpretation Comme nts basophils as percent of bloo d leukocytes (test code = 707-0) 1 % [facility] Healtheosinophils as percent of blood axcktweort4914-22-63 16:51:00* Test Item Value Reference Range Interpretation Comme nts eosinophils as percent of bl ood leukocytes (test code = 713-8) 2 % [facility] Healthmonocytes as percent of blood pjrtjdifkl9188-11-04 16:51:00* Test Item Value Reference Range Interpretation Comme nts monocytes as percent of bloo d leukocytes (test code = 5905-5) 7 % [facility] Healthlymphocytes as percent of blood eqfesxlblt5780-42-16 16:51:00* Test Item Value Reference Range Interpretation Comme nts lymphocytes as percent of bl ood leukocytes (test code = 736-9) 31 % [facility] Healthneutrophils as percent of blood prxnooovkh5205-30-22 16:51:00* Test Item Value Reference Range Interpretation Comme nts neutrophils as percent of bl ood leukocytes (test code = 770-8) 58 % [facility] [id number] 16:51:00* Test Item Value Reference Range Interpretation Comme [facility] platelet count (test code = 777-3) 313 X10E3/UL 150-450 [facility] distribution [id number] 16:51:00* Test Item Value Reference Range Interpretation Comme [facility] red blood cell distribution width (test code = 788-0) 12.7 % 11.7-15.4 [facility] corpuscular hemoglobin concentration, [id number] 16:51:00* Test Item Value Reference Range Interpretation Comme [facility] mean corpuscular hemoglobin concentration, RBC (test code = 786-4) 33.9 G/DL 31.5-35.7 [facility] corpuscular hemoglobin, [id number] 16:51:00* Test Item Value Reference Range Interpretation Comme [facility] mean corpuscular hemoglobin, RBC (test code = 785-6) 29.9 pg 26.6-33.0 [facility] corpuscular volume, [id number] 16:51:00* Test Item Value Reference Range Interpretation Comme [facility] mean corpuscular volume, RBC (test code = 787-2) 88 fL 79-97 [facility], [id number] 16:51:00* Test Item Value Reference Range Interpretation Comme [facility] hematocrit, blood (test code = 4544-3) 41.6 % 34.0-46. 6 [facility], [id number] 16:51:00* Test Item Value Reference Range Interpretation Comme [facility] hemoglobin, blood (test code = 718-7) 14.1 g/dL 11.1-15.9 [facility]th[facility] (RBC) [id number] 16:51:00* Test Item Value Reference Range Interpretation Comme [facility] erythrocyte (RBC) count (somin t code = 789-8) 4.71 X10E6/UL 3.77-5.28 [facility] count, [id number] 16:51:00* Test Item Value Reference Range Interpretation Comme [facility] leukocyte count, blood (test code = 6690-2) 8.1 X10E3/UL 3.4-10.8 [facility]yroxine, serum, [id number] 16:51:00* Test Item Value Reference Range Interpretation Comme [facility] thyroxine, serum, free (test code = 3024-7) 1.22 ng/dL 0.82-1.77 [facility] Hospitalthyroid stimulating hormone, [id number] 16:51:00* Test Item Value Reference Range Interpretation Comme [facility] thyroid stimulating hormone, serum (test code = 3016-3) 1.080 u[IU]/mL 0.450-4.500 [facility]
[2024-10-31] MEDS ORDERED: IBUPROFEN 400 MG TAB ONE (16:32)
--- NOTE | 2024-10-31 17:20 | RAD REPORT ---
Procedure: Chest Single View HISTORY: Cough COMPARISON: 2021 FINDINGS: Lung bases are hazy. No significant pleural effusion noted. The heart is normal size. IMPRESSION: Lung bases are hazy. This could be secondary to overlying soft tissue or infiltrate. PA and lateral c hest series is recommended
[2024-10-31 17:22] LABS: SARS-CoV-2 Antigen CONTROL BLUE LINE VIS/BG OK; SARS-CoV-2 Antigen Rapid Res Negative (Negative)
--- NOTE | 2024-10-31 17:53 | RAD REPORT ---
Procedure: Chest Pa And Lat (2 Views) HISTORY: Cough COMPARISON: October 31, 2024 FINDINGS: The lungs appear clear of acute infiltrate. No significant pleural effusion noted. The heart is normal size. IMPRESSION: No acute abnormality is displayed.
--- NOTE | 2024-10-31 18:03 | EDPHYS ---
Physician Documentation [facility] Name: Betina Escobedo Age: 34 yrs Sex: Female : 1990 Arrival Date: 10/31/2024 Time: 16:08 Bed 9 Private MD: ED Physician Robles Galvez HPI: 10/31 18:04 This 34 yrs old Female presents to ER via Ambulatory with complaints of Flu kb Symptoms. 18:04 Pt is a 34 year old female who presents for cough, congestion, bodyaches and fever that kb started yesterday. States her mother was sick last week and she thinks that is where she got these symptoms. Denies vomiting, diarrhea, chest pain, shortness of breath. Historical: - Allergies: 16:23 No Known Allergies; tm6 - PMHx: 16:23 None; tm6 - PSHx: 16:23 None; tm6 - Immunization history:: Flu vaccine is not up to date. - Infectious Disease History:: Denies. - Social history:: Smoking status: Patient denies any tobacco usage or history of. ROS: 18:03 Constitutional: As per HPI kb Exam: 18:03 Constitutional: This is a well developed, well nourished patient who is awake, alert, kb and in no acute distress. Head/Face: Normocephalic, atraumatic. ENT: Moist Mucous membranes Cardiovascular: Regular rate Respiratory: Respirations even and unlabored. No increased work of breathing. Talking in full sentences Abdomen/GI: Soft, non-tender. No distention Skin: Warm, dry with normal turgor. Normal color. MS/ Extremity: Pulses equal, no cyanosis. Neurovascular intact. Full, normal range of motion. Neuro: Awake and alert, GCS 15, oriented to person, place, time, and situation. Vital Signs: 16:21 BP 133 / 90; Pulse 126; Resp 19; Temp 102.8(O); Pulse Ox 98% on R/A; MAP 98 mmHg; tm6 Weight 81.65 kg; Height 5 ft. 7 in. ; Pain 5/10; 18:26 BP 125 / 77; Pulse 98; Temp 99.9(O); Pulse Ox 98% on R/A; jb4 16:21 Body Mass Index 28.19 (81.65 kg, 170.18 cm) tm6 16:21 Pain Scale: Adult tm6 MDM: 16:15 Medical Screening Exam initiated kb 18:03 Differential diagnosis: flu, covid, uri, pneumonia. Data reviewed: vital signs, nurses kb notes. I considered the following discharge prescriptions or medication management in the emergency department I discussed and recommended Over The Counter medications, Antibiotics: At this time antibiotics are not recommended, Antivirals: At this time, antivirals are not recommended. Historians other than the Patient: Spouse/Significant Other: spouse. Counseling: I had a detailed discussion with the patient and/or guardian regarding the historical points, exam findings, and any diagnostic results supporting the discharge/admit diagnosis, lab results, radiology results, the need for outpatient follow up, a family practitioner, to return to the emergency department if symptoms worsen or persist or if there are any questions or concerns that arise at home. 10/31 16:21 Order name: Flu; Complete Time: 17:23 kb 10/31 16:21 Order name: SARS-COV-2 Antigen Rapid; Complete Time: 17:23 kb 10/31 16:21 Order name: Chest Single View XRAY; Complete Time: 17:23 kb 10/31 17:24 Order name: Chest Pa And Lat (2 Views) XRAY; Complete Time: 17:57 kb 10/31 17:58 Order name: Vital Signs kb Administered Medications: 16:39 Drug: Ibuprofen PO 800 mg PO once Route: PO; jb4 Disposition: 18:48 I was immediately available on-site in the Emergency Department for consultation in the wy3 care of the patient. Disposition Summary: 10/31/24 18:03 Discharge Ordered Notes: Location: Home kb Condition: Stable kb Diagnosis - Acute upper respiratory infection, unspecified kb Followup: kb - With: Emergency Department - When: As needed - Reason: Worsening of condition Followup: kb - With: Private Physician - When: 2 - 3 days - Reason: Recheck today's complaints, Continuance of care, Re-evaluation by your physician Discharge Instructions: - Discharge Summary Sheet kb - Upper Respiratory Infection, Adult, [id number] kb Forms: - Medication Reconciliation Form kb - Antibiotic Education kb - Prescription Opioid Use kb - Patient Portal Instructions kb - Leadership Thank You Letter kb Signatures: Dispatcher [employer] Lamar Franklin FNP-C FNP-Hernandez Reyna RN RN jb4 Robles Galvez DO DO ms3 Wolf Puga, RN RN tm6 Corrections: (The following items were deleted from the chart) 17:24 17:24 Chest Pa And Lat (2 Views)+[email or web address] ordered. EDMS EDMS
--- NOTE | 2024-10-31 18:03 | ER ---
Nurse's Notes [facility] Name: Betina Escobedo Age: 34 yrs Sex: Female : 1990 Arrival Date: 10/31/2024 Time: 16:08 Bed 9 Private MD: Diagnosis: Acute upper respiratory infection, unspecified Presentation: 10/31 16:21 Chief complaint: Patient states: yesterday started with body aches, chills, fever, tm6 cough, runny nose, n/v. Coronavirus screen: Client denies travel out of the [place] in the last 14 days. Ebola Screen: Patient negative for fever greater than or equal to 101.5 degrees Fahrenheit, and additional compatible Ebola Virus Disease symptoms Patient denies exposure to infectious person. Patient denies travel to an Ebola-affected area in the 21 days before illness onset. No symptoms or risks identified at this time. Initial Sepsis Screen: Does the patient meet any 2 criteria? Temp <36.0*C (96.8*F)) or > 38.3*C (100.9*F). HR > 90 bpm. Yes Does the patient have a suspected source of infection? No. Patient's initial sepsis screen is negative. Risk Assessment: Do you want to hurt yourself or someone else? Patient reports no desire to harm self or others. Onset of symptoms was October 30, 2024. 16:21 Method Of Arrival: Ambulatory tm6 16:21 Acuity: JOSE 4 tm6 Triage Assessment: 16:23 General: Appears in no apparent distress. Behavior is calm, cooperative. Pain: tm6 Complains of pain in body aches. EENT: Reports nasal congestion nasal discharge. Neuro: Level of Consciousness is awake, alert, obeys commands, Oriented to person, place, time, situation. Cardiovascular: Patient's skin is warm and dry. Respiratory: Reports cough that is Airway is patent Respiratory effort is even, unlabored, Respiratory pattern is regular, symmetrical. GI: Abdomen is flat, non-distended, Reports nausea, vomiting. : No signs and/or symptoms were reported regarding the genitourinary system. Derm: No signs and/or symptoms reported regarding the dermatologic system. Musculoskeletal: Reports body aches. Historical: - Allergies: 16:23 No Known Allergies; tm6 - PMHx: 16:23 None; tm6 - PSHx: 16:23 None; tm6 - Immunization history:: Flu vaccine is not up to date. - Infectious Disease History:: Denies. - Social history:: Smoking status: Patient denies any tobacco usage or history of. Screenin:57 [facility] ED Fall Risk Assessment (Adult) History of falling in the last 3 months, jb4 including since admission No falls in past 3 months (0 pts) Confusion or Disorientation No (0 pts) Intoxicated or Sedated No (0 pts) Impaired Gait No (0 pts) Mobility Assist Device Used No (0 pt) Altered Elimination No (0 pt) Score/Fall Risk Level 0 - 2 = Low Risk Oriented to surroundings, Maintained a safe environment. Abuse screen: Denies threats or abuse. Nutritional screening: No deficits noted. Tuberculosis screening: No symptoms or risk factors identified. Assessment: 16:57 Reassessment: Patient appears in no apparent distress at this time. Patient and/or jb4 family updated on plan of care and expected duration. Pain level reassessed. Patient is alert, oriented x 3, equal unlabored respirations, skin warm/dry/pink. Vital Signs: 16:21 BP 133 / 90; Pulse 126; Resp 19; Temp 102.8(O); Pulse Ox 98% on R/A; MAP 98 mmHg; tm6 Weight 81.65 kg; Height 5 ft. 7 in. ; Pain 5/10; 18:26 BP 125 / 77; Pulse 98; Temp 99.9(O); Pulse Ox 98% on R/A; jb4 16:21 Body Mass Index 28.19 (81.65 kg, 170.18 cm) tm6 16:21 Pain Scale: Adult tm6 ED Course: 16:12 Patient arrived in ED. im 16:15 Lamar Montague FNP-C is [facility]. kb 16:15 Robles Galvez DO is Attending Physician. kb 16:23 Triage completed. tm6 16:23 Arm band placed on right wrist. tm6 16:57 Hernandez Johnson, MARIO ALBERTO is Primary Nurse. jb4 16:57 Patient has correct armband on for positive identification. Bed in low position. Call jb4 light in reach. Side rails up X 1. Provided Education on: plan of care. 16:57 No provider procedures requiring assistance completed. Patient did not have IV access jb4 during this emergency room visit. 17:12 Chest Single View XRAY In Process Unspecified. EDMS 17:40 Chest Pa And Lat (2 Views) XRAY In Process Unspecified. EDMS Administered Medications: 16:39 Drug: Ibuprofen PO 800 mg PO once Route: PO; jb4 Medication: 16:57 VIS not applicable for this client. jb4 Outcome: 18:03 Discharge ordered by MD. ramsay 18:32 Discharged to home ambulatory, with family, jb4 18:32 Condition: stable 18:32 Discharge instructions given to patient, Instructed on discharge instructions, follow up and referral plans. Demonstrated understanding of instructions, follow-up care, 18:32 Patient left the ED. jb4 Signatures: Dispatcher [employer] EDLamar Cuellar, ROSA MONTOYA-Hernandez Reyna, RN RN jb4 Jeannie Ch Tawney, RN RN tm6 Corrections: (The following items were deleted from the chart) 18:32 18:26 BP 125 / 77; Pulse Ox 98% RA; Temp 99.9F Oral; jb4 jb4
[2024-10-31 18:53] VITALS: O2SAT 98
[2024-10-31 18:54] VITALS: BP 125/77; TEMP 99.9
== END 2024-10-31 18:32 | disposition home or self-care (01) ==
LOC: ER 16:08
DX: J06.9 Acute upper respiratory infection, unspecified (principal); Z11.52 Encounter for screening for COVID-19
CPT/HCPCS: 36415; 71045; 71046; 87804; 87811; 99283